=== PATIENT | female | born 1985 | race Caucasian/White ===

== ENCOUNTER 2023-05-05 19:05 | Emergency (ER) | payer SELFPAY ==
[2023-05-05 19:08] VITALS: BP 125/77; PULSE 87; RESP 16; TEMP 36.7; O2SAT 98; BMI 20.7
--- NOTE | 2023-05-05 19:44 | ED.GENADULT ---
HPI - General Adult General Chief complaint: Ear Stated complaint: TMJ? T-2/ increasing pain Time Seen by Provider: 05/05/23 19:21 Source: patient Mode of arrival: Ambulatory History of Present Illness HPI narrative: Otherwise healthy 37-year-old woman who presents with 2 weeks of increasing left facial pain around the angle of the jaw, the TMJ joint and into the ear canal. She does note that she has some chronic neck issues and her initial assumption was the pain was related to her neck. Over these last 2 weeks she is used Tylenol ibuprofen and today tried some Naprosyn but is having increasing pain. Notes that dental occlusion seems to be somewhat off. Does not complain of intraoral or actual dental abnormality. Has not had any fevers and has never had similar findings Related Data Home Medications Medication Instructions Recorded Confirmed VIT#96/FERROUS FUM/FA 1 tab PO ##0 08/20/12 ( Tablet) Previous Rx's Medication Instructions Recorded ibuprofen 600 mg tablet 600 mg PO Q6HP PRN #60 tabs 08/22/17 amoxicillin 500 mg capsule 500 mg PO TID #21 caps 05/05/23 Allergies Allergy/AdvReac Type Severity Reaction Status Date / Time No Known Allergies Allergy Uncoded 05/05/23 19:14 Review of Systems Review of Systems Narrative: Pertinent positive and negative findings as per HPI Patient History Social History Smoking Status: Never smoker Smoking Status: Never smoker Substance Use Type: does not use Exam Initial Vital Signs Initial Vital Signs: Vital Signs Temperature 98.1 F 05/05/23 19:08 Pulse Rate 87 05/05/23 19:08 Respiratory Rate 16 05/05/23 19:08 Blood Pressure 125/77 05/05/23 19:08 Pulse Oximetry 98 05/05/23 19:08 Oxygen Delivery Method Room Air 05/05/23 19:08 General: Healthy appearing, in no acute distress. Able to give a complete and coherent history. Well-nourished well-developed HEENT: Moist mucous membranes, normal sclera with reactive pupils, the left side of her face from the angle of the jaw to the nose and just under the eye is swollen and tender to the touch. There is no redness or obvious abscess. Intraoral exam shows appropriate dentition, she does not have any pain with gentle palpation of teeth along the lower left jaw. No redness no abscess. No obvious tumors or masses along the lower jaw or under her tongue. She does have pain with palpation along the ear canal when palpating the temporomandibular joint. She also notes that her dental occlusion seems to be increasingly off over the last couple of days so that her left side is not meeting as completely and it feels the right side is shifted. Neck: No cervical adenopathy, supple Respiratory: Lungs are clear to auscultation, no wheezing no rales no rhonchi. Full and symmetrical air movement Cardiac: Regular rate and rhythm no murmurs no bruits Abdomen: Soft, nontender, good bowel tones, no flank pain Skin: Warm and dry, no rashes Neurologic: Grossly neurologically intact with no obvious asymmetries or abnormalities Psych: Cooperative, appropriate insight and affect Course Orders Ordered: ED Orders 05/05/23 20:01 CT facial bones w con Stat 05/05/23 20:10 CRP [C-Reactive Protein Quant] Stat Complete Blood Count AUTO DIFF Stat Comprehensive Metabolic Panel Stat Erythrocyte Sedimentation Rate Stat Vital Signs Vital signs: Vital Signs - 8 hr 05/05/23 19:08 05/05/23 21:58 05/05/23 21:59 Temperature 98.1 F Pulse Rate 87 63 Respiratory Rate 16 Blood Pressure 125/77 Pulse Oximetry 98 93 99 Oxygen Delivery Method Room Air 05/05/23 21:59 Temperature Pulse Rate Respiratory Rate Blood Pressure 106/58 L Pulse Oximetry Oxygen Delivery Method Medical Decision Making Lab Data 05/05/23 20:10 05/05/23 20:10 Labs: Lab Results 05/05/23 Range/Units 20:10 WBC 7.0 (4.5-11.0) X10^3/uL RBC 4.79 (4.0-5.2) X10^6/uL Hgb 13.1 (12.0-16.0) g/dL Hct 39.2 (36-46) % MCV 81.7 (80-100) fL MCH 27.3 (26-34) PG MCHC 33.4 (30-36) % RDW 14.0 (11.6-14.8) % Plt Count 235 (150-400) X10^3/uL Neut % (Auto) 59.9 (50-75) % Lymph % (Auto) 29.7 (25-40) % Bartholomew % (Auto) 6.4 (3-14) % Eos % (Auto) 3.2 (2-4) % Baso % (Auto) 0.8 (0-2) % Neut # (Auto) 4200 (5297-9453) /uL Lymph # (Auto) 2100 (6814-3708) /uL Bartholomew # (Auto) 500 (0-900) /uL Eos # (Auto) 200 (0-450) /uL Baso # (Auto) 100 (0-100) /uL ESR 3 (0-20) MM/HR Sodium 139 (137-145) mmol/L Potassium 4.0 (3.4-5.1) mmol/L Chloride 104 (98-107) mmol/L Carbon Dioxide 27 (22-32) mmol/L BUN 10 (7-17) mg/dL Creatinine 0.62 (0.52-1.04) mg/dL Estimated GFR > 60 (>60) mL/min BUN/Creatinine Ratio 16.1 (6-22) Glucose 94 (70-100) mg/dL Calcium 9.8 (8.4-10.2) mg/dL Total Bilirubin 0.5 (0.2-1.3) mg/dL AST 18 (14-36) IU/L ALT 12 (<35) IU/L Alkaline Phosphatase 46 (38-126) U/L C-Reactive Protein < 0.5 (<1.0) mg/dL Total Protein 7.5 (6.3-8.2) g/dL Albumin 4.6 (3.5-5.0) g/dL Globulin 2.9 (1.7-4.1) g/dL Albumin/Globulin Ratio 1.6 (1.0-2.8) MDM Narrative Medical decision making narrative: CC: Left TMJ jaw and facial pain for 2 weeks increasing Data collected from: patient, Differential considered: TMJ dysfunction, intraoral abscess, ear infection, head or neck neoplasm Exam documented above, pertinent findings include: swelling to the entire side of the face and jaw but no redness or warmth to suggest infection and the progressive dental malocclusion Lab Test results independently reviewed as above. Pertinent findings: CBC is unremarkable Chemistries are unremarkable Imaging studies independently reviewed: Facial CT is ordered to include the entire angle of the jaw and into the mastoid process. No significant soft tissue edema masses or fluid collections no significant adenopathy. Visualized portions of the skull base and auditory canal appear normal. Mastoid air cells are aerated. Sinuses are unremarkable. Normal alignment of the TMJs appreciated Treatments: Oral Percocet Discussion: 37-year-old woman with 2 weeks of progressive facial pain over the angle of the jaw TMJ and ear canal on the left side. There is no evidence of soft tissue mass, infection or other obvious abnormalities. With the increased edema I am going to place her on amoxicillin with concerns for dental infection. I am also going to recommend that she follow-up with her dentist. If this is simply TMJ inflammation than continuing Naprosyn will be appropriate. She may eventually need more thorough dental specific imaging and oral surgeon evaluation. She is safe for discharge home Discharge Plan Departure Patient Disposition: Home Clinical Impression: Left facial swelling, Arthralgia of left temporomandibular joint Instructions: DI for Temporomandibular Disorder Activity Restrictions/Additional Instructions: Thank you for coming in today Well many of your complaints are consistent with simple TMJ dysfunction, the acute onset 2 weeks ago without prior problems and the facial swelling does not quite fit. Because of this, lab work and a CT scan was done. The lab work was unremarkable in the CT scan did not show any obvious abnormalities, trauma, soft tissue masses, sinus problems or large abscesses. Dental abscesses are frequently not seen on regular CT scans done in the hospital. Using oral CT scans that oral surgeons frequently having their office may be more helpful. Because there certainly is a possibility of a dental abscess that is causing the pain and swelling I am going to have you take 7 days of amoxicillin. With possibility of TMJ dysfunction I would recommend an [id number] guard captain so that you are not able to lock your jaw if you are grinding her teeth at night. I would also recommend that you continue the Aleve in the prescription version of that would be to leave in the morning and to leave in the evening. To this you can add Tylenol as needed. I have given you for tablets of Percocet to use over the next couple of days so that you are at least able to get some pain relief and get some sleep. You do need to follow-up with your dentist. If symptoms persist he may refer you to an oral surgeon for more thorough evaluation. Prescriptions: New amoxicillin 500 mg capsule 500 mg PO TID Qty: 21 0RF No Action VIT#96/FERROUS FUM/FA ( Tablet) 1 tab PO Qty: 0 ibuprofen 600 MG tablet 600 mg PO Q6HP PRNQty: 60 1RF Referrals: Leonela Houser MD [Primary Care Provider] - Stand Alone Forms: Patient Portal/API
--- NOTE | 2023-05-05 20:01 | DI.CT.S_ITS ---
PROCEDURE: CT FACIAL BONES W CON INDICATIONS: Left facial, angle of jaw swelling TECHNIQUE: After the administration of intravenous contrast, 2.5 mm axial sections acquired from the mid-neck to the frontal sinuses, with coronal and sagittal reformats. For radiation dose reduction, the following was used: automated exposure control, adjustment of mA and/or kV according to patient size. COMPARISON: None. FINDINGS: Image quality: Excellent. Soft tissues: No edema, masses, or fluid collections. No enlarged lymph nodes. Vascular: Visualized vascular structures appear patent throughout. Bony vascular foramina and canals appear normal. Bones: Facial bones appear intact, without fractures, erosions, or destruction. Visualized portions of the skull base and auditory canals also appear normal. Sinuses: Paranasal sinuses are aerated without fluid levels, mucosal thickening, or mucoceles. Mastoid air cells are aerated. IMPRESSION: No trauma found, no inflammation identified. Normal alignment at the temporomandibular joints. Dictated by: Cuong Steward M.D. on 05/05/2023 at 20:45 Approved by: Cuong Steward M.D. on 05/05/2023 at 20:46
[2023-05-05 20:21] LABS: Add Manual Diff / Slide Review NO; Basophils Absolute Auto 100 /uL (0-100); Basophils Percent Auto 0.8 % (0-2); Eosinophils Absolute Auto 200 /uL (0-450); Eosinophils Percent Auto 3.2 % (2-4); Hematocrit 39.2 % (36-46); Hemoglobin 13.1 g/dL (12.0-16.0); Lymphocytes Absolute Auto 2100 /uL (1100-4500); Lymphocytes Percent Auto 29.7 % (25-40); Mean Corpuscular HGB Conc 33.4 % (30-36); Mean Corpuscular Hemoglobin 27.3 PG (26-34); Mean Corpuscular Volume 81.7 fL (80-100); Monocytes Absolute Auto 500 /uL (0-900); Monocytes Percent Auto 6.4 % (3-14); Neutrophils Absolute Auto 4200 /uL (1500-7000); Neutrophils Percent Auto 59.9 % (50-75); Platelet Count 235 X10^3/uL (150-400); Red Blood Cell Count 4.79 X10^6/uL (4.0-5.2)
[2023-05-05 20:35] LABS: Alanine Aminotransferase 12 IU/L (<35); Albumin 4.6 g/dL (3.5-5.0); Albumin Globulin Ratio 1.6 (1.0-2.8); Alkaline Phosphatase 46 U/L (38-126); Aspartate Aminotransferase 18 IU/L (14-36); BUN Creatinine Ratio 16.1 (6-22); Bilirubin Total 0.5 mg/dL (0.2-1.3); Blood Urea Nitrogen 10 mg/dL (7-17); C-Reactive Protein Quant < 0.5 mg/dL (<1.0); Calcium 9.8 mg/dL (8.4-10.2); Carbon Dioxide 27 mmol/L (22-32); Chloride 104 mmol/L (98-107); Estimated Glomerular Filt Rate > 60 mL/min (>60); Globulin 2.9 g/dL (1.7-4.1); Glucose 94 mg/dL (70-100); HEMOLYSIS < 15 (0-50); Sodium 139 mmol/L (137-145); Total Protein 7.5 g/dL (6.3-8.2)
[2023-05-05 20:44] LABS: Erythrocyte Sedimentation Rate 3 MM/HR (0-20)
[2023-05-05 21:58] VITALS: O2SAT 93
[2023-05-05 21:59] VITALS: BP 106/58; PULSE 63; O2SAT 99
[2023-05-05] MEDS: OXYCODONE/APAP 5/325 PREPACK 1 BOTTLE MISC (23:00)
[2023-05-05 23:04] VITALS: PULSE 69; RESP 18; O2SAT 100
[2023-05-05 23:07] VITALS: BP 95/54; PULSE 60; RESP 16; O2SAT 100
== END 2023-05-05 23:09 | disposition home or self-care (01) ==
PROVIDERS: Emergency Provider Emergency Medicine; Family Provider Family Medicine; PCP Family Medicine
DX: M26.622 Arthralgia of left temporomandibular joint (principal); R22.0 Localized swelling, mass and lump, head; M54.2 Cervicalgia
CPT/HCPCS: 36415; 70487; 80053; 85025; 85651; 86140; 99284